=== PATIENT | female | born 1975 | race Caucasian/White ===

== ENCOUNTER 2019-01-22 04:33 | Emergency (ER) | payer BC ==
[2019-01-22 04:39] VITALS: BP 152/99
== END 2019-01-22 05:43 | disposition home or self-care (01) ==
LOC: ED 04:33
DX: S30.861A Insect bite (nonvenomous) of abdominal wall, initial encounter (principal); S40.862A Insect bite (nonvenomous) of left upper arm, initial encounter; S40.861A Insect bite (nonvenomous) of right upper arm, initial encounter; L29.8 Other pruritus; I10 Essential (primary) hypertension; E03.9 Hypothyroidism, unspecified; W57.XXXA Bitten or stung by nonvenomous insect and other nonvenomous arthropods, initial encounter; Y93.89 Activity, other specified; Y99.8 Other external cause status